=== PATIENT | male | born 2000 | race Caucasian/White ===

== ENCOUNTER 2020-10-11 06:31 | Emergency (ER) | payer OTHER ==
--- NOTE | 2020-10-11 07:27 | EDM.PDOC ---
ED HPI GENERAL MEDICAL PROBLEM - General Chief Complaint: Upper Extremity Injury/Pain Stated Complaint: POSSIBLE SURGERY COMPLICATIONS Time Seen by Provider: 10/11/20 07:15 Source of Information: Reports: Patient, RN. Denies: Old Records History Limitations: Reports: Other (no old records) - History of Present Illness INITIAL COMMENTS - FREE TEXT/NARRATIVE: 20 yo male from [place], [place] and who often works in this area had surgery in [place] last February by an orthopedic surgeon for a comminuted R clavicle fx. More recently he has been experiencing more pain in that area that is affecting his work. His boss sent him here today for evaluation. There are no records of this medical procedure here locally. Onset: Gradual Duration: Week(s):, Getting Worse Location: Reports: Upper Extremity, Right Quality: Reports: Ache Severity: Mild Improves with: Reports: None Worsens with: Reports: Other (? time or use of that body part) Context: Reports: Other (See HPI) Associated Symptoms: Reports: No Other Symptoms Treatments EDI CONSULTANT: Reports: NSAIDS ED ROS GENERAL - Review of Systems Review Of Systems: See Below Constitutional: Reports: No Symptoms Musculoskeletal: Reports: Joint Pain (R shoulder). Denies: Joint Swelling Skin: Reports: No Symptoms Neurological: Reports: No Symptoms ED EXAM, UPPER BACK/NECK PAIN - Physical Exam Exam: See Below Exam Limited By: No Limitations General Appearance: Alert, WD/WN, No Apparent Distress Ears Exam: Hearing Grossly Normal Nose Exam: Normal Inspection Throat/Mouth Exam: Normal Voice Extremities: Normal Inspection, Normal Range of Motion, No Pedal Edema Neurologic: No Motor/Sensory Deficits, Alert, Normal Mood/Affect, Oriented x 3 Psychiatric: Normal Affect, Normal Mood Skin Exam: Normal Color, Warm/Dry Departure - Departure Time of Disposition: 07:27 Disposition: Home, Self-Care 01 Condition: Good Clinical Impression: Right shoulder pain Qualifiers: Chronicity: chronic Qualified Code(s): M25.511 - Pain in right shoulder; G89.29 - Other chronic pain - Discharge Information *PRESCRIPTION DRUG MONITORING PROGRAM REVIEWED*: Not Applicable *COPY OF PRESCRIPTION DRUG MONITORING REPORT IN PATIENT BHAVANA: Not Applicable Instructions: Shoulder Pain, [id number] Referrals: PCP,None [Primary Care Provider] - Forms: ED Department Discharge Additional Instructions: Add acetaminophen to ibuprofen for added pain relief. Call and schedule an appt with your orthopedic doctor back home to further assess the cause of your shoulder/clavicle pain.
== END 2020-10-11 07:35 | disposition home or self-care (01) ==
LOC: FB.ED 06:31
DX: G89.29 Other chronic pain (principal); M25.511 Pain in right shoulder
CPT/HCPCS: 99283